=== PATIENT | male | born 1965 | race Caucasian/White ===

== ENCOUNTER 2016-08-13 04:23 | Emergency (ER) | payer BC ==
[2016-08-13 04:43] VITALS: BMI 45.3
--- NOTE | 2016-08-13 05:00 | DR.GENAD ---
HPI - PCP Primary Care Physician: dina - HPI Comment HPI Comment: NOSE BLEED TIMES 3 TONIGHT. CURRENTLY NO NOSE BLEED. BLOOD PRESSURE IS ALSO ELEVATED ALSO. PATIENT TOOK BP MEDS TONIGHT. HE TAKES SEVERAL MED AT NIGHT FOR BP. HAVE SLIGHT HEADACHE. - Complaint/Symptoms Chief Complaint Doctors Comments: NOSE BLEED, ELEVATED BLOOD PRESSURE. Chief Complaint:: patient's nose has started bleeding out of left nostril 3 different times tonight and has had about 6-7 blood clots come out Self Treatment fo Chief Complaint: applied pressure and stuck paper towel in nose - Nurses notes reviewed Nurses Notes Review: Yes - Source History Provided: Patient - Mode of Arrival Mode of Arrival: Ambulatory - Timing Onset of Chief Complaint: 08/12/16 Came on: Suddenly - Duration Duration: Constant Duration: Hours - Severity Severity: Moderate PMH - PMH Past Medical History: Yes Past Medical History: CVA, Dyslipidemia, Hypertension Past Surgical History: Yes Surgical History: Appendectomy, Ortho Surgery Past Surgical History Comment: hernia repair - Family History History of Family Medical Conditions: Yes Family Medical History: Diabetes Mellitus, [place], Coronary Artery Disease, Sudden Cardiac , Hypertension Family Medical History Comment: cva - Social History Does patient currently use any type of tobacco product: No Have you used tobacco products in the last 12 months: No Type of Tobacco Use: None Does any household member use tobacco: Yes Alcohol Use: None Do you use any recreational Drugs:: No Lives With: Spouse Lives Where: Home - infectious screening In the last 2 months have you had wt loss of >10#?: NO Have you had fever, night sweats or hemotysis?: No Have you traveled outside the country in the last 6 months?: No Isolation: Standard ROS - Review of Systems Constitutional: No Symptoms Reported Eyes: No Symptoms Reported ENTM: Nose Discharge, Epistaxis, Nose Congestion. negative: Ear Pain, Throat Pain Respiratoy: No Symptoms Reported. negative: Productive Cough, Non-Productive Cough, Short of Breath, Wheezing, Hemoptysis Cardiovascular: No Symptoms Reported Gastrointestinal/Abdominal: No Symptoms Reported Genitourinary: No Symptoms Reported Neurological: Pre-existing Deficit (MILD LEFT SIDED WEAKNESS FROM PREVIOUS STROKE.) Musculoskeletal: No Symptoms Reported Integumentary: No Symptoms Reported Hematologic/Lymphatic: No Symptoms Reported Endocrine: No Symptoms Reported All Other Systems: Reviewed and Negative PE - Vital Signs Vitals: Temperature 98.6 F Pulse Rate 68 Respiratory Rate 24 Blood Pressure [Right Arm] 155/98 Blood Pressure 214/117 O2 Sat by Pulse Oximetry 95 - General Limitations: No Limitations General Appearance: Alert - Head Head Exam: Normal Inspection - Eyes Eye exam: Normal Appearance - ENT ENT Exam: Normal External Ear Exam External Ear Exam: Normal External Inspection TM/Canal Exam: Bilateral Normal Nose Exam: Normal Nose Exam, Sinus Tenderness (SLIGHT SINUS DRAINAGE). negative : Nasal Deviation, Septal Hematoma, Laceration, Abrasion Throat Exam: Normal Inspection - Neck Neck Exam: Trachea Midline - Chest Chest Inspection: Symmetric Chest Wall Rise - Respiratory Respiratory Exam: negative: Respiratory Distress Respiratory Exam: Bilateral Rhonchi, Lower Rhonchi - Cardiovascular Cardiovascular Exam: Regular Rate, Normal Rhythm, Normal Heart Sounds - Abdominal Exam Abdominal Exam: Normal Bowel Sounds, Soft. negative: Tenderness - Extremities Extremities Exam: Normal Inspection. negative: Edema, Calf Tenderness - Back Back Exam: Normal Inspection - Neurologic Neurological Exam: Alert, Oriented X3, Motor Sensory Deficit (MILD LEFT SIDED WEAKNESS.) - Skin Skin Exam: Normal Color MDM - Additional Information Additional Information Obtained From: Family - Differential Diagnosis Differential Diagnosis: EPISTAXIS, HYPERTENSION Course - Treatment Treatment: SEE ORDERS. POTASSIUM LIQUID PO IN ED. - Education/Counseling Education/Counseling: Patient, Family, Education Educated On: Diagnosis, Needs for Follow Up ROR - Labs Reviewed Laboratory Results Reviewed?: Yes Result Diagrams: 08/13/16 05:00 08/13/16 05:00 Laboratory: WBC 7.7 X10^3/uL (3.6-10.0) 08/13/16 05:00 RBC 5.76 X10^6/uL (4.7-6.0) 08/13/16 05:00 Hgb 15.5 g/dL (13.5-18.0) 08/13/16 05:00 Hct 46.6 % (42.0-54.0) 08/13/16 05:00 MCV 81.0 fL (80.0-100.0) 08/13/16 05:00 MCH 26.9 pg (27.0-34.0) L 08/13/16 05:00 MCHC 33.2 g/dL (33.0-35.0) 08/13/16 05:00 RDW 14.7 % (11.6-16.5) 08/13/16 05:00 Plt Count 251 X10^3/uL (150.0-450.0) 08/13/16 05:00 MPV 8.6 fL (7.4-11.0) 08/13/16 05:00 Neut % 48.2 % (42.0-75.0) 08/13/16 05:00 Lymph % 34.9 % (21.0-51.0) 08/13/16 05:00 [place] % 11.7 % (0.0-13.0) 08/13/16 05:00 Eos % 4.3 % (0.9-2.9) H 08/13/16 05:00 Baso % 0.9 % (0.2-1.0) 08/13/16 05:00 Neut # 3.7 x10^3/uL (2.2-4.8) 08/13/16 05:00 Lymph # 2.7 X10^3/uL (1.3-2.9) 08/13/16 05:00 [place] # 0.9 x10^3/uL (0.3-0.8) H 08/13/16 05:00 Eos # 0.3 x10^3/uL (0.0-0.2) H 08/13/16 05:00 Baso # 0.1 X10^3/uL (0.0-0.1) 08/13/16 05:00 Absolute Nucleated RBC 0.1 /100WBC 08/13/16 05:00 INR Target Range - 08/13/16 05:00 INR 1.01 (0.8-1.3) 08/13/16 05:00 PTT 30.3 SECONDS (22.9-36.5) 08/13/16 05:00 PTT Comment - 08/13/16 05:00 Sodium 143 mmol/L (136-145) 08/13/16 05:00 Corrected Sodium 143 mmol/L (136-145) 08/13/16 05:00 Potassium 3.0 mmol/L (3.5-5.1) L* 08/13/16 05:00 Chloride 105 mmol/L (98-107) 08/13/16 05:00 Carbon Dioxide 28.1 mmol/L (21-32) 08/13/16 05:00 BUN 16 mg/dL (7-18) 08/13/16 05:00 Creatinine 1.20 mg/dL (0.70-1.30) 08/13/16 05:00 Est GFR (MDRD) Af Amer > 60 (>60) 08/13/16 05:00 Est GFR (MDRD) Non-Af > 60 (>60) 08/13/16 05:00 Glucose 113 mg/dL (65-99) H 08/13/16 05:00 Calcium 8.5 mg/dL (8.5-10.1) 08/13/16 05:00 Corrected Calcium TNP 08/13/16 05:00 Total Bilirubin 0.40 mg/dL (0.2-1.0) 08/13/16 05:00 AST 30 Units/L (15-37) 08/13/16 05:00 ALT 59 Units/L (12-78) 08/13/16 05:00 Alkaline Phosphatase 88 Units/L (46-116) 08/13/16 05:00 Total Protein 7.1 g/dL (6.4-8.2) 08/13/16 05:00 Albumin 3.5 g/dL (3.4-5.0) 08/13/16 05:00 Globulin 3.6 g/dL (2.5-4.5) 08/13/16 05:00 Albumin/Globulin Ratio 1.0 Ratio (1.1-2.1) L 08/13/16 05:00 - Diagnosis Discharge Problem: Epistaxis, Hypokalemia Hypertension Qualifiers: Hypertension type: essential hypertension Qualified Code(s): I10 - Essential ( primary) hypertension - Discharge Plan Disposition: 01 HOME, SELF-CARE Condition: Stable - Follow ups/Referrals Follow ups/Referrals: IVANNA ZARAGOZA [Primary Care Provider] - 1 day - Instructions Instructions: Nosebleed, [id number], Hypertension Additional Instructions: RETURN TO ED IF WORSE.
[2016-08-13 05:20] LABS: BASOPHILS # (AUTO) 0.1 X10^3/uL (0.0-0.1); BASOPHILS % (AUTO) 0.9 % (0.2-1.0); EOSINOPHILS # (AUTO) 0.3 x10^3/uL (0.0-0.2); EOSINOPHILS % (AUTO) 4.3 % (0.9-2.9); HEMATOCRIT 46.6 % (42.0-54.0); HEMOGLOBIN 15.5 g/dL (13.5-18.0); LYMPHOCYTES # (AUTO) 2.7 X10^3/uL (1.3-2.9); LYMPHOCYTES % (AUTO) 34.9 % (21.0-51.0); MEAN CORPUSCULAR HEMOGLOBIN 26.9 pg (27.0-34.0); MEAN CORPUSCULAR HGB CONC 33.2 g/dL (33.0-35.0); MEAN PLATELET VOLUME 8.6 fL (7.4-11.0); MONOCYTES # (AUTO) 0.9 x10^3/uL (0.3-0.8); MONOCYTES % (AUTO) 11.7 % (0.0-13.0); NEUTROPHILS # (AUTO) 3.7 x10^3/uL (2.2-4.8); NEUTROPHILS % (AUTO) 48.2 % (42.0-75.0); PLATELET COUNT 251 X10^3/uL (150.0-450.0); RED BLOOD COUNT 5.76 X10^6/uL (4.7-6.0); RED CELL DISTRIBUTION WIDTH 14.7 % (11.6-16.5); WHITE BLOOD COUNT 7.7 X10^3/uL (3.6-10.0)
[2016-08-13 05:26] LABS: BLOOD UREA NITROGEN 16 mg/dL (7-18); CALCIUM 8.5 mg/dL (8.5-10.1); CARBON DIOXIDE 28.1 mmol/L (21-32); CHLORIDE 105 mmol/L (98-107); COR NA(FOR HYPERGLY) 143 mmol/L (136-145); GLUCOSE 113 mg/dL (65-99); SODIUM 143 mmol/L (136-145); eGFR BLACK RACES > 60 (>60); eGFR NON BLACK RACES > 60 (>60)
[2016-08-13 05:31] LABS: ALANINE AMINOTRANSFERASE 59 Units/L (12-78); ALBUMIN 3.5 g/dL (3.4-5.0); ALKALINE PHOSPHATASE 88 Units/L (46-116); ASPARTATE AMINO TRANSFERASE 30 Units/L (15-37); TOTAL PROTEIN 7.1 g/dL (6.4-8.2)
[2016-08-13] MEDS ORDERED: POTASSIUM CHLORIDE LIQ 20 MEQ UDC PO ONE (05:47)
[2016-08-13] MEDS ORDERED: POTASSIUM CHLORIDE LIQ 20 MEQ UDC ONE (05:50)
[2016-08-13 06:03] VITALS: BP 155/98
== END 2016-08-13 06:02 | disposition home or self-care (01) ==
LOC: ER 04:23
DX: R04.0 Epistaxis (principal); E87.6 Hypokalemia; I10 Essential (primary) hypertension
CPT/HCPCS: 36415; 80053; 85025; 85610; 85730; 99282

== ENCOUNTER 2017-10-04 22:57 | Emergency (ER) | payer BC, OTHER ==
[2017-10-04 23:07] VITALS: BP 155/70; BMI 43.3
--- NOTE | 2017-10-05 00:22 | RAD ---
Right forearm, AP and lateral Indication: Fall 4 days ago. Pain. Findings: There is chronic appearing osseous density adjacent to the lateral humeral epicondyles. Mil d degenerative changes of the elbow are noted. There is no evidence for acute cortical disruption or malalignment of the radius or ulna. Impression: No acute osseous injury to the right forearm identified. Reported By:
--- NOTE | 2017-10-05 00:22 | DR.GENAD ---
HPI - PCP Primary Care Physician: ZARAGOZA - Complaint/Symptoms Chief Complaint Doctors Comments: i agree with history as stated. Injury of the right upper extremity by falling and hitting the gound. Patient complaint of swelling of the right upper extrmeity. Chief Complaint:: RIGHT ARM PAIN/HAND PAIN R/T TRIPPING AND HITTING RIGHT ARM ON GROUND SUNDAY Self Treatment fo Chief Complaint: SOAKED EPSOM SALTS - Source History Provided: Patient - Mode of Arrival Mode of Arrival: Ambulatory - Timing Onset of Chief Complaint: 10/02/17 PMH - PMH Past Medical History: Yes Past Medical History: CVA, Dyslipidemia, Hypertension Past Surgical History: Yes Surgical History: Appendectomy, Ortho Surgery - Family History History of Family Medical Conditions: Yes Family Medical History: Diabetes Mellitus, [place], Coronary Artery Disease, Sudden Cardiac , Hypertension - Social History Does patient currently use any type of tobacco product: No Have you used tobacco products in the last 12 months: No Type of Tobacco Use: None Does any household member use tobacco: No Alcohol Use: None Do you use any recreational Drugs:: No Lives With: Spouse Lives Where: Home - infectious screening In the last 2 months have you had wt loss of >10#?: NO Have you had fever, night sweats or hemotysis?: No Have you traveled outside the country in the last 6 months?: No Isolation: Standard ROS - Review of Systems Constitutional: No Symptoms Reported Eyes: No Symptoms Reported ENTM: No Symptoms Reported Respiratoy: No Symptoms Reported Cardiovascular: No Symptoms Reported Gastrointestinal/Abdominal: No Symptoms Reported Genitourinary: No Symptoms Reported Neurological: No Symptoms Reported Musculoskeletal: No Symptoms Reported Integumentary: No Symptoms Reported Hematologic/Lymphatic: No Symptoms Reported Endocrine: No Symptoms Reported Psychiatric: No Symptoms Reported All Other Systems: Reviewed and Negative PE - Vital Signs Vitals: Temperature 98.6 F Pulse Rate 64 Respiratory Rate 16 Blood Pressure [Right Arm] 155/98 Blood Pressure 155/70 O2 Sat by Pulse Oximetry 97 - General General Appearance: Alert, In No Apparent Distress - Head Head Exam: Normal Inspection, Atraumatic - Eyes Eye exam: Normal Appearance, PERRL, EOMI - ENT ENT Exam: Normal Exam, Normal Oropharynx External Ear Exam: Normal External Inspection TM/Canal Exam: Bilateral Normal Nose Exam: Normal Nose Exam Mouth Exam: Normal Inspection Throat Exam: Normal Inspection - Neck Neck Exam: Normal Inspection - Chest Chest Inspection: Normal Inspection - Respiratory Respiratory Exam: Normal Lung Sounds Bilat Respiratory Exam: Bilateral Clear to Auscultation - Cardiovascular Cardiovascular Exam: Regular Rate, Normal Rhythm - Abdominal Exam Abdominal Exam: Normal Inspection, Normal Bowel Sounds Abdominal Tenderness: negative: RUQ, RLQ, LUQ, LLQ, Epigastrium, Suprapubic, Diffuse, Mild, Moderate, Severe, Other - Extremities Extremities Exam: Normal Inspection, Full ROM, Tenderness, Edema (right forearm) - Back Back Exam: Normal Inspection - Neurologic Neurological Exam: Alert, Oriented X3, CN II-XII Intact - Psychiatric Psychiatric Exam: Normal Affect - Skin Skin Exam: Warm, Dry, Intact ROR - XRAY XRAY Interpreted by: Radiologist (Right forearm: There is chronic appearing osseous density adjacent to the lateral humeral epicondyles. Mild degenerative changes of the elbow are noted. Therre is no evidence for acute cortical disruption or malalignment of the radius or ulna. Hand: Dorsal hand swelling is noted. Mild irregularity of the little finger metacarpal suggestive for remote healed fracture. There are mild degenerative changes of the fintger IP joints, and index and long finger MCP joints. Moderate egenerative changes of the thumb CMC joint is also noted. No acute cortical disruption or malalignment is identified. Impression: hand swelling without evidence for acute osseous injury. 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
--- NOTE | 2017-10-05 00:24 | RAD ---
Right hand, three views Indication: Hand pain, recent fall Findings: Dorsal hand swelling is noted. Mild irregularity of the little finger metacarpal suggestive for remote healed fracture. There are mild degenerative changes of the finger IP joints, and index a nd long finger MCP joints. Moderate degenerative changes at the thumb CMC joint is also noted. No acu te cortical disruption or malalignment is identified. Impression: Hand swelling without evidence for acute osseous injury. Chronic findings as above. Reported By:
[2017-10-05] MEDS ORDERED: TORADOL 60 MG VIAL IM ONE (01:10)
[2017-10-05] MEDS ORDERED: TORADOL 60 MG VIAL ONE (01:14)
== END 2017-10-05 01:23 | disposition home or self-care (01) ==
LOC: ER 22:57
DX: S62.606D Fracture of unspecified phalanx of right little finger, subsequent encounter for fracture with routine healing (principal); M19.021 Primary osteoarthritis, right elbow; W01.0XXA Fall on same level from slipping, tripping and stumbling without subsequent striking against object, initial encounter
CPT/HCPCS: 73090; 73130; 96372; 99282; 99283; J1885